=== PATIENT | male | born 2005 | race Caucasian/White ===

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

== ENCOUNTER 2024-01-13 21:33 | Emergency (ER) | payer OTHER ==
[~2024-01-13] VITALS: Ht 170.2 cm; Wt 56.9 kg
[2024-01-13] MEDS ORDERED: ALBUTEROL/IPRATROPIUM 3 ML NEB INH ONE (21:45)
[2024-01-13] MEDS ORDERED: DEXAMETHASONE SOD PHOS 4 MG/ML VIAL IM ONE (21:45)
[2024-01-13] MEDS ORDERED: INHALER, ASSIST DEVICES 1 EACH SPACER MISC ONE (22:30)
[2024-01-13] MEDS ORDERED: ALBUTEROL SULFATE 8 GM HOME.PACK INH ONE (22:30)
[2024-01-13 23:01] VITALS: BP 129/75
== END 2024-01-13 23:01 | disposition home or self-care (01) ==
LOC: ED 21:33
DX: R06.00 Dyspnea, unspecified (principal)
CPT/HCPCS: 71045; 94640; J1100

== ENCOUNTER 2024-03-02 12:37 | Emergency (ER) | payer OTHER ==
[~2024-03-02] VITALS: Ht 170.2 cm; Wt 62.0 kg
[2024-03-02] MEDS ORDERED: FLUORESCEIN SOD 1 EA STRP OU ONE (13:00)
[2024-03-02] MEDS ORDERED: LACTATED RINGER'S 1,000 ML IV ONE (13:00)
[2024-03-02] MEDS ORDERED: ondansetron HCL 4 MG/2 ML VIAL IV ONE (13:00)
[2024-03-02] MEDS ORDERED: HYDROmorphone HCL 1 MG/ML SYR IV ONE (13:00)
[2024-03-02] MEDS ORDERED: TETRACAINE HCL 0.5% 4 ML BTL OU ONE (13:00)
[2024-03-02] MEDS ORDERED: DIPHTH,PERTUSS(ACELL),TET VAC 0.5 ML SYRINGE IM ONE (13:00)
[2024-03-02 13:02] LABS: BASOPHILS 0.5 % (0-2); EOSINOPHILS 1.1 % (0-6); HEMATOCRIT 45.5 % (35.0-50.0); HEMOGLOBIN 16.4 g/dL (12.0-18.0); LYMPHOCYTES 38.6 % (24-44); MCH 30.7 (27-36); MCHC 35.9 g/dl (30-36); MCV 85.3 fl (81-99); MONOCYTES 9.3 % (0-12); NEUTROPHILS 50.5 % (39-80); PLATELET COUNT 284 K/uL (140-440); RBC 5.34 M/ul (4.3-5.7); RDW 13.3 (10.5-15.0)
[2024-03-02 13:10] LABS: ALBUMIN 4.1 g/dL (3.4-5.0); ALBUMIN/GLOBULIN RATIO 1.32 (1.1-2.4); ALCOHOL, MEDICAL <3 ng/dL (<3); ALKALINE PHOSPHATASE 60 U/L (46-116); ALT (SGPT) 20 U/L (14-59); ANION GAP 13.5 (7-21); AST (SGOT) 14 U/L (15-37); BILIRUBIN, TOTAL 0.7 ng/dL (0.2-1.0); CALCIUM 9.2 mg/dL (8.5-10.1); CARBON DIOXIDE 24 mmol/L (21-32); CHLORIDE 103 mmol/L (98-107); CREATINE KINASE 98 U/L (39-308); POTASSIUM 3.5 mmol/L (3.5-5.1); PROTEIN, TOTAL 7.2 g/dL (6.4-8.2)
[2024-03-02 13:15] LABS: BUN/CREATININE RATIO 12.17 (6.0-28.6); CREATININE, SERUM 1.15 mg/dL (0.70-1.30); GLOMERULAR FILTRATION RATE,EST 93 mL/min (>60); UREA NITROGEN 14 mg/dL (7-18)
[2024-03-02 14:26] LABS: ABO A; RH POSITIVE
[2024-03-02 14:28] LABS: ANTIBODY SCREEN NEGATIVE
[2024-03-02] MEDS ORDERED: fentaNYL citrate 100 MCG/2 ML VIAL IV ONE (14:45)
[2024-03-02 15:29] LABS: AMPHETAMINES, URINE NEGATIVE (NEGATIVE); BARBITURATES, URINE NEGATIVE (NEGATIVE); BENZODIAZEPINE, URINE NEGATIVE (NEGATIVE); BUPRENORPHINE, URINE NEGATIVE (NEGATIVE); CANNABINOID, URINE NEGATIVE (NEGATIVE); COCAINE, URINE NEGATIVE (NEGATIVE); ECSTASY, URINE NEGATIVE (NEGATIVE); FENTANYL, URINE NEGATIVE (NEGATIVE); METHADONE, URINE NEGATIVE (NEGATIVE); OPIATES, URINE NEGATIVE (NEGATIVE); OXYCODONE, URINE NEGATIVE (NEGATIVE); PHENCYCLIDINE, URINE NEGATIVE (NEGATIVE)
[2024-03-02] MEDS ORDERED: WAL SPORIN FIRS TOP (16:49)
[2024-03-02] MEDS ORDERED: PERCOCET 5-3251 EACH PO (16:49)
[2024-03-02] MEDS ORDERED: OXYCODONE/ACETAMINOPHEN 1 TAB HOME.PACK PO ONE (17:00)
[2024-03-02 17:01] VITALS: BP 142/84
== END 2024-03-02 17:02 | disposition home or self-care (01) ==
LOC: ED 12:37
PROVIDERS: Emergency Medicine
DX: T20.26XA Burn of second degree of forehead and cheek, initial encounter (principal); T20.24XA Burn of second degree of nose (septum), initial encounter; T23.201A Burn of second degree of right hand, unspecified site, initial encounter; X08.8XXA Exposure to other specified smoke, fire and flames, initial encounter; Z23 Encounter for immunization
CPT/HCPCS: 16020; 36415; 71045; 80053; 80307; 82375; 82553; 83605; 85025; 86850; 86900; 86901; 90471; 90715; 99283-25; G0480; J1171; J2405; J3010; J7121